=== PATIENT | male | born 1990 | race Caucasian/White ===

== ENCOUNTER 2025-07-27 02:59 | Emergency (ER) | payer MEDICAID, OTHER ==
[~2025-07-27] VITALS: Ht 180.3 cm; Wt 77.0 kg
[2025-07-27 03:03] VITALS: BP 119/84; PULSE 80; RESP 14; TEMP 98.1; O2SAT 98
== END 2025-07-27 04:57 | disposition left against medical advice (07) ==
LOC: ER 03:00
DX: R21 Rash and other nonspecific skin eruption (principal); R50.9 Fever, unspecified; Z53.21 Procedure and treatment not carried out due to patient leaving prior to being seen by health care provider